=== PATIENT | female | born 1990 ===

== ENCOUNTER 2018-12-27 09:06 | Outpatient (CLI) | payer OTHER | END 2018-12-27 09:07 | disposition home or self-care (01) | LOC: C.USIC 09:06 | DX: N63.0 Unspecified lump in unspecified breast (principal); K76.9 Liver disease, unspecified ==

== ENCOUNTER 2019-01-17 09:12 | Outpatient (CLI) | payer OTHER | END 2019-01-17 09:13 | disposition home or self-care (01) | LOC: C.USIC 09:13 ==

== ENCOUNTER 2019-01-17 10:02 | Outpatient (CLI) | payer OTHER | END 2019-01-17 10:03 | disposition home or self-care (01) | LOC: C.LAB 10:02 | DX: Z20.5 Contact with and (suspected) exposure to viral hepatitis (principal) ==

== ENCOUNTER 2019-01-21 09:47 | Outpatient (CLI) | payer OTHER | END 2019-01-21 09:48 | disposition home or self-care (01) | LOC: C.MRIC 09:47 | DX: D37.6 Neoplasm of uncertain behavior of liver, gallbladder and bile ducts (principal) ==

== ENCOUNTER 2019-02-06 12:13 | Outpatient (CLI) | payer OTHER | END 2019-02-06 12:14 | disposition home or self-care (01) | LOC: C.LAB 12:13 | DX: D37.6 Neoplasm of uncertain behavior of liver, gallbladder and bile ducts (principal) ==